=== PATIENT | female | born 1960 | race Caucasian/White ===

== ENCOUNTER 2017-04-24 08:29 | Day surgery (SDC) | payer BC ==
[2017-04-20 10:41] VITALS: BMI 23.6
[2017-04-24] MEDS ORDERED: PROPOFOL 20 ML ONE ×2 (08:42)
[2017-04-24] MEDS ORDERED: GLYCOPYRROLATE 0.2 MG/1 ML VIAL ONE (10:13)
[2017-04-24 10:34] VITALS: BP 110/61; PULSE 67; TEMP 98.2
== END 2017-04-24 10:35 | disposition home or self-care (01) ==
LOC: FASU-ENDO 08:29
PROVIDERS: ATTEND Internal Medicine Gastroenterology
PROC: 0DJD8ZZ Inspection of Lower Intestinal Tract, Via Natural or Artificial Opening Endoscopic (ICD-10-PCS; principal; 2017-04-24 09:40)
DX: Z12.11 Encounter for screening for malignant neoplasm of colon (principal); Z80.0 Family history of malignant neoplasm of digestive organs; K57.30 Diverticulosis of large intestine without perforation or abscess without bleeding

== ENCOUNTER 2023-03-23 07:59 | Day surgery (SDC) | payer BC ==
[2023-03-21 12:18] VITALS: BMI 24.7
[2023-03-23 08:23] VITALS: TEMP 97.1
[2023-03-23 10:17] VITALS: RESP 18
[2023-03-23 12:11] VITALS: BP 111/61; PULSE 79
== END 2023-03-23 11:55 | disposition home or self-care (01) ==
LOC: FASU-ENDO 07:59
PROVIDERS: ATTEND Internal Medicine Gastroenterology
PROC: 0DJD8ZZ Inspection of Lower Intestinal Tract, Via Natural or Artificial Opening Endoscopic (ICD-10-PCS; principal; 2023-03-23 09:22)
DX: Z12.11 Encounter for screening for malignant neoplasm of colon (principal); K57.30 Diverticulosis of large intestine without perforation or abscess without bleeding; Z80.0 Family history of malignant neoplasm of digestive organs
CPT/HCPCS: 71045-TC-FY